=== PATIENT | female | born 1985 | race Caucasian/White ===

== ENCOUNTER → 2025-06-14 | Outpatient (CLI) | payer BC, SELFPAY ==
--- NOTE | 2025-06-14 08:12 | US_ITS ---
PROCEDURE: ELASTOGRAPHY PARENCHYMA/ORGAN 06/14/2025 REASON FOR EXAM: ELEVATED LIVER ENZYMES, FATTY LIVER TECHNIQUE: Procedure Code: USELPAROG Modality: US Procedure: ELASTOGRAPHY PARENCHYMA/ORGAN COMPARISON: Outside examination dated December 13, 2024. FINDINGS: KPA: 3.6. Velocity: 1.09. Metavir score: F 0 US/Elastography Parenchyma/Organ IMPRESSION: No evidence of hepatic fibrosis. Reading Location: [place] [id number]
--- OUTSIDE RECORDS SUMMARY | 2025-06-14 08:32 | XMS RPT_ITS | CCD ---
Author Organization [facility] Care Team Providers Care Drywall Contractor Name Role Phone SAILAJA ELECTRIC NEEDLE SPECIALIST-ARMATURE BALANCER, ABE S Primary Care Physicia n ABE MENARD Primary Care Unavailable EMILEE MCKENZIE, MENDEZ Cardona Attending Unavail able ABE MENARD Primary Care Unavailable ABE MENARD Attending Unavailable SAILAJA ELECTRIC NEEDLE SPECIALIST-ARMATURE BALANCER, ABE S Attending Unava ilable SAILAJA ELECTRIC NEEDLE SPECIALIST-ARMATURE BALANCER, ABE S Primary Care Unava ilable SAILAJA ELECTRIC NEEDLE SPECIALIST-ARMATURE BALANCER, ABE S Attending Unava ilable SAILAJA ELECTRIC NEEDLE SPECIALIST-ARMATURE BALANCER, ABE S Primary Care Unava ilable SAILAJA ELECTRIC NEEDLE SPECIALIST-ARMATURE BALANCER, ABE S Primary Care Unava ilable SAILAJA ELECTRIC NEEDLE SPECIALIST-ARMATURE BALANCER, ABE S Attending Unava ilable SAILAJA ELECTRIC NEEDLE SPECIALIST-ARMATURE BALANCER, ABE S Primary Care Unava ilable SAILAJA ELECTRIC NEEDLE SPECIALIST-ARMATURE BALANCER, ABE S Attending Unava ilable SAILAJA ELECTRIC NEEDLE SPECIALIST-ARMATURE BALANCER, ABE S Attending Unava ilable SAILAJA ELECTRIC NEEDLE SPECIALIST-ARMATURE BALANCER, ABE S Primary Care Unava ilable Riccardo Waterman Attending Unavailable Sailaja PRIMARY SCHOOL TEACHER LIBRARIAN, Abe Referring Unavailable Sailaja PRIMARY SCHOOL TEACHER LIBRARIAN, Abe Primary Care Unavailable Sailaja PRIMARY SCHOOL TEACHER LIBRARIAN-C, Abe Primary Care Provider [phone] Sailaja PRIMARY SCHOOL TEACHER LIBRARIAN-C, Abe Referring Provider Guevara MCKENZIE, Dr. Gu Attending Provider [phone] Allergies Allergy Classification Reported Allergen(s) Allergy Type Date of Onset Reaction(s) Facility (8 sources) dimethicone / Zinc Oxide; Translations: [emollients, topical] Drug Allergy [facility] Medications Current Medications Medication Drug Class(es) Dates Sig (Normalized) Sig (Original) 0.5 ML semaglutide 0.5 MG/ML Auto-Injector [Wegovy] (1 source) Start: 08-05-2022 End: 09-30-2022 inject 1 dose by subcutaneous injection every week Wegovy (0.25 mg dose) subcutaneous solution Dose : 0.25 mg =, Subcutaneous, qWeek, in the abdomen, thigh, or upper arm, X 4 week(s), # 2 mL, 1 Refill(s), 09/30/22 14:19:00 EDT, Pharmacy: [facility]/pharmacy #[id number], 170, cm, 08/05/22 13:42:00 EST, Height Start Date: 08/05/22 Stop Date: 09/30/22 Status: Ordered buprenorphine 2 mg / naloxone 0.5 mg sublingual film (1 source) Partial Opioid Agonist, Opioid Antagonist Start: 2023 buprenorphine-nalo xone 2 mg-0.5 mg sublingual film Dose = 1 film, Sublingual, TID, APPLY 1 FILM THREE TIMES A DAY Start Date: 10/12/23 Status: Ordered 24 hr buPROPion hydrochloride 300 mg extended release oral tablet (7 sources) Aminoketone Start: 12-28-2024 take 1 tablet by mouth once daily in the morning Bupropion Hcl 300 mg tablet extended release 24 hr Active 300 mg PO EVERY MORNING December 28, 2024 12:00am Start: 12-11-2024 End: 12-06-2025 take 1 tablet by mouth every hour, then take 1 tablet by mouth once daily buPROPion 300 mg/24 hours (XL) oral tablet, extended release Dose : 300 mg = 1 tab(s), Oral, qDay, # 90 tab(s), 3 Refill(s), Pharmacy: [facility]/pharmacy #[id number], 171, cm, 12/11/24 16:04:00 EDT, Height, kg, 12/11/24 16:04:00 EDT, Dosing Weight Start Date: 12/11/24 Stop Date: 12/06/25 Status: Ordered Quantity: 90.0 Unit: tab(s) Repeat number: 4 Start: 05-01-2024 End: 04-26-2025 take 1 tablet by mouth every hour, then take 1 tablet by mouth every twenty-four hours buPROPion 150 mg/24 hours (XL) oral tablet, extended release Dose : 150 mg = 1 tab(s), Oral, q24h, # 90 tab(s), 3 Refill(s), [id number], 168.7, cm, 05/01/24 16:03:00 EDT, Height, kg, 05/01/24 16:03:00 EDT, Dosing Weight Start Date: 05/01/24 Stop Date: 04/26/25 Status: Ordered Quantity: 90.0 Unit: tab(s) Repeat number: 4 Start: 2023 take 1 tablet by magdi th every hour, then take 1 tablet by mouth every twenty-four hours buPROPion 150 mg/24 hours (XL) oral tablet, extended release Dose : 150 mg = 1 tab(s), Oral, q24h, # 30 tab(s), 1 Refill(s), [id number], 169, cm, 10/12/23 16:01:00 EDT, Height, kg, 10/12/23 16:01:00 EDT, Dosing Weight Start Date: 10/12/23 Status: Ordered Suboxone 8 mg-2 mg sublingual tablet (1 source) Start: 03-27-2014 take 1 tablet under the tongue once daily Suboxone 8 mg-2 mg sublingual tablet Dose = 1 tab(s), Sublingual, Daily, # 180 tab(s), 0 Refill(s) Start Date: 03/27/14 Status: Ordered Completed/Discontinued Medications Medication Drug Class(es) Dates Sig (Normalized) Sig (Original) 0.5 ML semaglutide 2 MG/ML Auto-Injector [Wegovy] (1 source) Start: 09-20-2023 inject 0.5 mL by subcutaneous injection every week Wegovy (1 mg dose) subcutaneous solution Dose : 1 mg = 0.5 mL, Subcutaneous, qWeek, in the abdomen, thigh, or upper arm x 4 weeks, # 2 mL, 1 Refill(s), Pharmacy: [facility], 170, cm, 01/12/23 15:35:00 EDT, Height, kg, 04/16/23 18:48:00 EDT, Dosing Weight Start Date: 09/20/23 Status: Ordered Problems Problem Classification Problem Date Documented Date Episodic/Chronic Immunizations and screening for infectious disease (2 sources) Encounter for screening for infections with a predominantly sexual mode of transmission; Translations: [Encounter for screening for infections with a predominantly sexual mode of transmission] Onset: 2023 Episodic Mood disorders (6 sources) Depressive disorder 2023 Chronic Nausea and vomiting (1 source) Vomiting; Translations: [Vomiting, unspecified] Onset: 11-12-2021 Episodic Other female genital disorders (7 sources) Premenstrual tension syndrome 08-05-2022 Chronic Other liver diseases (4 sources) Elevated liver enzymes level 12-11-2024 Episodic Other nutritional; endocrine; and metabolic disorders (7 sources) Obesity 08-05-2022 Chronic Other screening for suspected conditions (not mental disorders or infectious disease) (6 sources) Viral screening status 2023 Episodic Residual codes; unclassified (5 sources) Intolerant of cold 05-01-2024 Episodic Substance-related disorders (1 source) Opioid abuse 01-26-2015 Chronic Unclassified (2 sources) Breast feeding () (observable entity) 03-30-2016 Comment on above: System added from do cumentation. Breast feeding Status documented as Yes on Admission Unclassified (7 sources) Cancer cervix screening status 08-05-2022 Unclassified (20 sources) Patient encounter status 08-05-2022 Results Test Name Value Interpretation Reference Range Facility BREAST RIGHT LIMITEDon BREAST RIGHT LIMITED ORIGINAL FROM: [place] [address] PROCEDURE FOR: [address] [address] [place] [address] Home: PID#: [id number] Exam#: [id number] : 1985 Age: 39 TO: ABE MENARD APRN [address] [address] Fax: NO FAX EXAMINATION: ULTRASOUND OF THE RIGHT BREAST 01/23/2025 2:01 pm TECHNIQUE: Color flow and alarcon scale targeted ultrasound of the right breast were performed. Permanently stored images were reviewed. COMPARISON: 01/15/2025 mammogram HISTORY: ORDERING SYSTEM PROVIDED HISTORY: Reason for Exam: abn. mammo FINDINGS: In the right breast 3 o'clock to 3 cm from the nipple there is a 4 x 3 x 2 mm hypoechoic oval mass which is felt to correspond to the mammographic abnormality, there is no vascularity. IMPRESSION: Hypoechoic mass likely related to a complicated cyst, this is felt to correspond to the mammographic abnormality. This is probably benign, follow-up right breast ultrasound and mammogram in 6 months is recommended to document stability. Karen Light risk calculations, generated with the history provided, report this patient's 10 year risk and lifetime risk for developing breast cancer at 1.5% and 11.9%, respectively. Based on this assessment tool, if the patient's calculated lifetime risk is below 20%, then the patient is considered at average risk for developing breast cancer. If the patient's calculated lifetime risk is at or above 20%, then the patient is considered high risk for developing breast cancer and may be a candidate for supplemental breast MRI screening in addition to annual mammographic screening per the [employer]. BIRADS: BI-RADS: 3: Probably Benign RECALL: 6 month follow-up RECALL TYPE: Right mammo+US LETTER SENT: Probably Benign BI-RADS 3 Interpreted by: Lm Staton MD Preliminary Report By: Lm Staton MD Electronically signed By Lm Staton MD Dictated Date: 01/23/2025 2:28:56 PM Prelim Date: 01/23/2025 2:34:18 PM Sign Date: 01/23/2025 2:34:18 PM Ordering Provider: ABE MENARD Duco Polisher: DESTINI CORRALES [facility] letter sent: Probably Benign BI-RADS 3 Ultrasound BI-RADS: 3 Probably benign Normal [facility] MAMMOGRAM SCREENING BILAT ERAL W/TOMOon 01-16-2025 [place] MAMMOGRAM SCREENING BILATERAL W/CHRISTOPH ORIGINAL FROM: [facility] [address] [place], [place] [address] PROCEDURE FOR: [address] [place] [address] Home: PID#: [id number] Exam#: [id number] : 1985 Age: 39 TO: ABE MENARD ELECTRIC NEEDLE SPECIALIST ARMATURE BALANCER [address], [place] [address] Fax: NO FAX EXAMINATION: SCREENING DIGITAL BILATERAL MAMMOGRAM WITH TOMOSYNTHESIS, 01/15/2025 3:38 pm TECHNIQUE: Screening mammography of the bilateral breasts was performed with tomosynthesis. 2D standard and 3D tomosynthesis combination imaging performed through both breasts in the MLO and CC projection. Computer aided detection was utilized in the interpretation of this exam. COMPARISON: Baseline HISTORY: Breast cancer screening. FINDINGS: BREAST DENSITY: There are scattered areas of fibroglandular density. In the right breast at 3 o'clock anterior depth, there is a 0.5 cm mass. There are no other significant masses, calcifications, or other findings. IMPRESSION: Mass in the right breast at 3 o'clock anterior depth. Right breast ultrasound is recommended. We will contact the patient to arrange for the exam. Karen Arroyozick risk calculations, generated with the history provided, report this patient's 10 year risk and lifetime risk for developing breast cancer at 1.9% and 15.1%, respectively. Based on this assessment tool, if the patient's calculated lifetime risk is below 20%, then the patient is considered at average risk for developing breast cancer. If the patient's calculated lifetime risk is at or above 20%, then the patient is considered high risk for developing breast cancer and may be a candidate for supplemental breast MRI screening in addition to annual mammographic screening per the [employer]. BIRADS: BI-RADS: 0: Incomplete: Need Additional Imaging Evaluation RECALL: immediate RECALL TYPE: Right US LETTER SENT: Abnormal-Needs additional work up BI-RADS 0 Interpreted by: Claribel Esquivel Preliminary Report By: Claribel Esquivel Electronically signed By Claribel Esquivel Dictated Date: 01/16/2025 1:57:30 PM Prelim Date: 01/16/2025 2:03:20 PM Sign Date: 01/16/2025 2:03:20 PM Ordering Provider: ABE MENARD Interpreted by: Claribel Esquivel Preliminary Report By: Claribel Esquivel Electronically signed By Claribel Esquivel Dictated Date: 01/16/2025 1:57:30 PM Prelim Date: 01/16/2025 2:03:20 PM Sign Date: 01/16/2025 2:03:20 PM Ordering Provider: ABE MENARD Duco Polisher: CAROL MARTINEZ RT (Alexys)(M) letter sent: Abnormal-Needs additional work up BI-RADS 0 Mammogram BI-RADS: 0 Indeterminate Normal [facility] US ABDOMEN LIMITEDon 12-13-2 025 US ABDOMEN LIMITED ORIGINAL EXAMINATION: RIGHT UPPER QUADRANT ULTRASOUND 12/13/2024 7:20 am COMPARISON: 12/23/2016 HISTORY: ORDERING SYSTEM PROVIDED HISTORY: Reason for Exam: elevated liver enzymes FINDINGS: LIVER: The liver demonstrates increased echogenicity and coarsened echotexture without evidence of intrahepatic biliary ductal dilatation. The liver measures 18 cm. BILIARY SYSTEM: Gallbladder is unremarkable without evidence of pericholecystic fluid, wall thickening or stones. Negative sonographic Corona's sign. Common bile duct is within normal limits measuring 4 mm. RIGHT KIDNEY: The right kidney is grossly unremarkable without evidence of hydronephrosis. The right kidney measures 11 cm PANCREAS: Pancreas not well visualized. OTHER: No evidence of right upper quadrant ascites. IMPRESSION: Hepatic steatosis and/or hepatocellular disease. Interpreted by: Christel Aguilera Preliminary Report By: Christel Aguilera Electronically signed By Christel Aguilera Dictated Date: 12/13/2024 8:53:59 AM Prelim Date: 12/13/2024 8:56:49 AM Sign Date: 12/13/2024 8:56:49 AM Ordering Provider: ABE MENARD Normal [facility] HEPACon 12-12-2024 Hep A IgM Ab Non-Reactive Normal Non-Reactive [facility] Comment on above: Performed By: #### L IPID, CBC, ADIFF, ANEU, TSH, FT4, CMP, GFR #### [place] [id number] [place], [place] [address] Hep A IgM Ab Int See Interp Normal [facility] Comment on above: Result Comment: Clinical Interpretation: No serological evidence of a current Hepatitis A infection. Performed By: #### L IPID, CBC, ADIFF, ANEU, TSH, FT4, CMP, GFR #### [place] [address] [place], [place] [address] Hep B Core IgM Ab Non-Reactive Normal Non-Reactive [facility] Comment on above: Performed By: #### L IPID, CBC, ADIFF, ANEU, TSH, FT4, CMP, GFR #### [place] [address] Hep B Core IgM Ab Int See [facility] Comment on above: Result Comment: Clinical Interpretation: Samples with a value < 0.80 Index are considered nonreactive (negative) for IgM antibodies to hepatitis B core antigen. Performed By: #### L IPID, CBC, ADIFF, ANEU, TSH, FT4, CMP, GFR #### [place] [address] Hep B Surf Ag Non-Reactive Normal Non-[facility] Comment on above: Performed By: #### L IPID, CBC, ADIFF, ANEU, TSH, FT4, CMP, GFR #### [place] [address] Hep C Ab Non-Reactive Normal Non-Reactive [facility] Comment on above: Performed By: #### L IPID, CBC, ADIFF, ANEU, TSH, FT4, CMP, GFR #### [place] [address] Hep C Ab Int See [facility] Comment on above: Result Comment: Clinical Interpretation: Nonreactive: Samples with a value < 0.80 are considered nonreactive (negative) for antibodies to HCV. A negative test result does not exclude the possibility of exposure to or infection with HCV. HCV antibodies may be undetectable in some stages of the infection and in some clinical conditions. Performed By: #### L IPID, CBC, ADIFF, ANEU, TSH, FT4, CMP, GFR #### [place] [address] LABORATORYOrdered By: Zully Green on 12-12-2024 HAV IgM IA Ql Non-Reactive (12/12/24 4:45 PM) Normal Non-Reactive AH ADM SS HAV IgM IA Ql See Inter 2 *NA* (12/12/24 4:45 PM) Invalid Interpretation Code Chemistry S Comment on above: Result Comment: Clinical Interpretation: No serological evidence of a current Hepatitis A infection. HBV core IgM IA Ql Non-Reactive (12/12/24 4:45 PM) Normal Non-Reactive AH ADM SS HBV core IgM IA Ql See Interp 1 *NA* (12/12/24 4:45 PM) Invalid Interpretation Code Chemistry S Comment on above: Result Comment: Clinical Interpretation: Samples with a value < 0.80 Index are considered nonreactive (negative) for IgM antibodies to hepatitis B core antigen. HBV surface Ag IA Ql Non-Reactive (12/12/24 4:45 PM) Normal Non-Reactive AH ADM SS HCV Ab IA Ql Non-Reactive (12/12/24 4:45 PM) Normal Non-Reactive AH ADM SS HCV Ab IA Ql See Interp 3 *NA* (12/12/24 4:45 PM) Invalid Interpretation Code Chemistry S Comment on above: Result Comment: Clinical Interpretation: Nonreactive: Samples with a value < 0.80 are considered nonreactive (negative) for antibodies to HCV. A negative test result does not exclude the possibility of exposure to or infection with HCV. HCV antibodies may be undetectable in some stages of the infection and in some clinical conditions. .Auto Diffon 12-10-2024 Basophil, Absolute 0.1 10 3/mcL Normal 0.0-0.3 [facility] Comment on above: Performed By: #### L IPID, CBC, ADIFF, ANEU, TSH, FT4, CMP, GFR #### [address] [address] Basophils/100 WBC (Bld) 0.7 % Normal 0.0-2.5 [facility] Comment on above: Performed By: #### L IPID, CBC, ADIFF, ANEU, TSH, FT4, CMP, GFR #### [place] [address] [place], [place] [address] Eosinophil, Absolute 0.2 10 3/mcL Normal 0.0-0.7 [facility] Comment on above: Performed By: #### L IPID, CBC, ADIFF, ANEU, TSH, FT4, CMP, GFR #### [address] [address] Eosinophils/100 WBC (Bld) 2.2 % Normal 0.0-6.0 [facility] Comment on above: Performed By: #### L IPID, CBC, ADIFF, ANEU, TSH, FT4, CMP, GFR #### [address] [address] Lymphocyte, Absolute 1.9 10 3/mcL Normal 0.9-4.3 [facility] Comment on above: Performed By: #### L IPID, CBC, ADIFF, ANEU, TSH, FT4, CMP, GFR #### [address] [address] Lymphocytes/100 WBC (Bld) 24.1 % Normal 20.0-40.0 [facility] Comment on above: Performed By: #### L IPID, CBC, ADIFF, ANEU, TSH, FT4, CMP, GFR #### [address] [address] Monocyte, Absolute 0.4 10 3/mcL Normal 0.1-1.4 [facility] Comment on above: Performed By: #### L IPID, CBC, ADIFF, ANEU, TSH, FT4, CMP, GFR #### [address] [address] Monocytes/100 WBC (Bld) 5.2 % Normal 2.0-13.0 [facility] Comment on above: Performed By: #### L IPID, CBC, ADIFF, ANEU, TSH, FT4, CMP, GFR #### [address] [address] Neutrophils/100 WBC (Bld) 67.8 % Normal 50.0-75.0 [facility] Comment on above: Performed By: #### L IPID, CBC, ADIFF, ANEU, TSH, FT4, CMP, GFR #### [address] [address] .GFRon 12-10-2024 Estimated Glomerular Filtration Rate 95 ml/min/1.73sqm Normal [facility] Comment on above: Result Comment: Stages of Chronic Kidney Disease (CKD) Stage Description eGFR(ml/min/1.73 sq.m.) CKD 1 Normal kidney function or >=90 normal kindney function with possible kidney damage (ex. Proteinuria) CKD 2 Kidney damage with mild loss 60-89 of kidney function CKD 3a Mild to moderate loss of kidney 45-59 function CKD 3b Moderate to severe loss of 30-44 of kindey function CKD 4 Severe loss of kidney function 15-29 CKD 5 Kidney failure <15 Note: (go live 2024) the eGFR calculation was updated to the 2020 CKD-EPI creatinine equation without a race factor to calculate the eGFR results. Performed By: #### L IPID, CBC, ADIFF, ANEU, TSH, FT4, CMP, GFR #### [place] [id number] .NEUABSon 12-10-2024 Neutrophil, Absolute 5.3 10 3/mcL Normal 2.3-8.1 [facility] Comment on above: Performed By: #### L IPID, CBC, ADIFF, ANEU, TSH, FT4, CMP, GFR #### [place] [address] CBCon 12-10-2024 Erythrocyte distribution width (RBC) [Ratio] 13.5 % Normal 11.5-15.5 [facility] Comment on above: Performed By: #### L IPID, CBC, ADIFF, ANEU, TSH, FT4, CMP, GFR #### [place] [address] Hematocrit (Bld) [Volume fraction] 39.3 % Normal 34.0-46.0 [facility] Comment on above: Performed By: #### L IPID, CBC, ADIFF, ANEU, TSH, FT4, CMP, GFR #### [place] [address] Hgb 13.3 G/dL Normal 12.0-16.0 [facility] Comment on above: Performed By: #### L IPID, CBC, ADIFF, ANEU, TSH, FT4, CMP, GFR #### [place] [address] MCH (RBC) [Entitic mass] 31.1 pg Normal 27.0-33.0 [facility] Comment on above: Performed By: #### L IPID, CBC, ADIFF, ANEU, TSH, FT4, CMP, GFR #### [address] [address] MCHC 33.7 G/dL Normal 32.0-36.0 [facility] Comment on above: Performed By: #### L IPID, CBC, ADIFF, ANEU, TSH, FT4, CMP, GFR #### [place] [id number] MCV (RBC) [Entitic vol] 92.2 fL Normal 80.0-99.0 [facility] Comment on above: Performed By: #### L IPID, CBC, ADIFF, ANEU, TSH, FT4, CMP, GFR #### [address] [address] Platelet 248 10 3/mcL Normal 150-450 [facility] Comment on above: Performed By: #### L IPID, CBC, ADIFF, ANEU, TSH, FT4, CMP, GFR #### [place] [address] Platelet mean volume (Bld) [Entitic vol] 8.4 fL Normal 6.6-10.5 [facility] Comment on above: Performed By: #### L IPID, CBC, ADIFF, ANEU, TSH, FT4, CMP, GFR #### [place] [id number] RBC 4.26 10 6/mcL Normal 4.10-5.30 [facility] Comment on above: Performed By: #### L IPID, CBC, ADIFF, ANEU, TSH, FT4, CMP, GFR #### [place] [address] WBC 7.9 10 3/mcL Normal 4.5-10.8 [facility] Comment on above: Performed By: #### L IPID, CBC, ADIFF, ANEU, TSH, FT4, CMP, GFR #### [place] [address] CMPon 12-10-2024 Albumin Level 3.9 G/dL Normal 3.5-5.0 [facility] Comment on above: Performed By: #### L IPID, CBC, ADIFF, ANEU, TSH, FT4, CMP, GFR #### [address] [address] Albumin/Globulin [Mass ratio] 1.0 {ratio} Low 1.1-2.5 [facility] Comment on above: Performed By: #### L IPID, CBC, ADIFF, ANEU, TSH, FT4, CMP, GFR #### [place] [id number] ALP [Catalytic activity/Vol] 64 U/L Normal 40-135 [facility] Comment on above: Performed By: #### L IPID, CBC, ADIFF, ANEU, TSH, FT4, CMP, GFR #### [place] [id number] ALT [Catalytic activity/Vol] 132 U/L High 14-59 [facility] Comment on above: Performed By: #### L IPID, CBC, ADIFF, ANEU, TSH, FT4, CMP, GFR #### [place] [id number] AST [Catalytic activity/Vol] 59 U/L High 10-40 [facility] Comment on above: Performed By: #### L IPID, CBC, ADIFF, ANEU, TSH, FT4, CMP, GFR #### [address] [address] Bili Total 0.4 mg/dL Normal 0.2-1.0 [facility] Comment on above: Result Comment: Use of this assay is not recommended for patients undergoing treatment with eltrombopag due to the potential for falsely elevated results. Performed By: #### L IPID, CBC, ADIFF, ANEU, TSH, FT4, CMP, GFR #### [place] [id number] BUN/Creatinine Ratio 15 ratio Normal 7-27 [facility] Comment on above: Performed By: #### L IPID, CBC, ADIFF, ANEU, TSH, FT4, CMP, GFR #### [place] [address] Calcium [Mass/Vol] 9.2 mg/dL Normal 8.4-10.2 [facility] Comment on above: Performed By: #### L IPID, CBC, ADIFF, ANEU, TSH, FT4, CMP, GFR #### [place] [address] Chloride [Moles/Vol] 101 mmol/L Normal 98-107 [facility] Comment on above: Performed By: #### L IPID, CBC, ADIFF, ANEU, TSH, FT4, CMP, GFR #### [place] [address] CO2 [Moles/Vol] 28 mmol/L Normal 22-29 [facility] Comment on above: Performed By: #### L IPID, CBC, ADIFF, ANEU, TSH, FT4, CMP, GFR #### [place] [address] Creatinine [Mass/Vol] 0.80 mg/dL Normal 0.51-0.95 [facility] Comment on above: Performed By: #### L IPID, CBC, ADIFF, ANEU, TSH, FT4, CMP, GFR #### [place] [address] Electrolyte Balance 9.0 mEq/L Normal 4.0-15.[address] [facility] Comment on above: Performed By: #### L IPID, CBC, ADIFF, ANEU, TSH, FT4, CMP, GFR #### [place] [address] Globulin 4.1 G/dL Normal 2.7-4.4 [facility] Comment on above: Performed By: #### L IPID, CBC, ADIFF, ANEU, TSH, FT4, CMP, GFR #### [place] [address] Glucose [Mass/Vol] 101 mg/dL Normal 70-105 [facility] Comment on above: Performed By: #### L IPID, CBC, ADIFF, ANEU, TSH, FT4, CMP, GFR #### [address] [address] Potassium [Moles/Vol] 3.9 mmol/L Normal 3.5-5.1 [facility] Comment on above: Performed By: #### L IPID, CBC, ADIFF, ANEU, TSH, FT4, CMP, GFR #### [address] [address] Sodium [Moles/Vol] 138 mmol/L Normal 136-145 [facility] Comment on above: Performed By: #### L IPID, CBC, ADIFF, ANEU, TSH, FT4, CMP, GFR #### [address] [address] Total Protein 8.0 G/dL Normal 6.4-8.2 [facility] Comment on above: Performed By: #### L IPID, CBC, ADIFF, ANEU, TSH, FT4, CMP, GFR #### [address] [address] Urea nitrogen [Mass/Vol] 12 mg/dL Normal 7-18 [facility] Comment on above: Performed By: #### L IPID, CBC, ADIFF, ANEU, TSH, FT4, CMP, GFR #### [address] [address] FT4on 12-10-2024 Free T4 [Mass/Vol] 0.82 ng/dL Normal 0.76-1.46 [facility] Comment on above: Performed By: #### L IPID, CBC, ADIFF, ANEU, TSH, FT4, CMP, GFR #### [address] [address] LABORATORYOrdered By: SYSTEM SYSTEM on 12-10-2024 Albumin BCP dye [Mass/Vol] 3.9 G/dL Normal 3.5 - 5.0 G/dL AO ADM SS Albumin/Globulin [Mass ratio] 1.0 {ratio} Low 1.1 - 2.5 ratio AO ADM SS ALP [Catalytic activity/Vol] 64 U/L Normal 40 - 135 U/L AO ADM SS ALT With P-5'-P [Catalytic activity/Vol] 132 U/L High 14 - 59 U/L AO ADM SS AST With P-5'-P [Catalytic activity/Vol] 59 U/L High 10 - 40 U/L AO ADM SS Basophils (Bld) [#/Vol] 0.1 103/mcL Normal 0.0 - 0.3 10^3/mcL AO Workflow SS Basophils/100 WBC (Bld) 0.7 % Normal 0.0 - 2.5 % AO Workflow SS Bilirubin [Mass/Vol] 0.4 mg/dL Normal 0.2 - 1 .0 mg/dL AO ADM SS Comment on above: Interpretive Data: U se of this assay is not recommended for patients undergoing treatment with eltrombopag due to the potential for falsely elevated results. Calcium [Mass/Vol] 9.2 mg/dL Normal 8.4 - 10. 2 mg/dL AO ADM SS Chloride [Moles/Vol] 101 mmol/L Normal 98 - 10 7 mmol/L AO ADM SS CO2 [Moles/Vol] 28 mmol/L Normal 22 - 29 mmol/L AO ADM SS Creatinine [Mass/Vol] 0.80 mg/dL Normal 0.51 - 0.95 mg/dL AO ADM SS Electrolyte Balance 9.0 mEq/L Normal 4.0 - 15 .0 mEq/L AO ADM SS Eosinophil, Absolute 0.2 103/mcL Normal 0.0 - 0 .7 10^3/mcL AO Workflow SS Eosinophils/100 WBC (Bld) 2.2 % Normal 0.0 - 6.0 % AO Workflow SS Erythrocyte distribution width (RBC) [Ratio] 13.5 % Normal 11.5 - 15.5 % AO Workflow SS Estimated Glomerular Filtration Rate 95 ml/min/1.73sqm Invalid Interpretation Code AO Chemistry S Comment on above: Interpretive Data: Stages of Chronic Kidney Disease (CKD) Stage Description eGFR(ml/min/1.73 sq.m.) CKD 1 Normal kidney function or >=90 normal kindney function with possible kidney damage (ex. Proteinuria) CKD 2 Kidney damage with mild loss 60-89 of kidney function CKD 3a Mild to moderate loss of kidney 45-59 function CKD 3b Moderate to severe loss of 30-44 of kindey function CKD 4 Severe loss of kidney function 15-29 CKD 5 Kidney failure <15 Note: (go live 2024) the eGFR calculation was updated to the 2020 CKD-EPI creatinine equation without a race factor to calculate the eGFR results. Free T4 [Mass/Vol] 0.82 ng/dL Normal 0.76 - 1. 46 ng/dL AO ADM SS Globulin 4.1 G/dL Normal 2.7 - 4.4 G/dL AO ADM SS Glucose [Mass/Vol] 101 mg/dL Normal 70 - 105 mg/dL AO ADM SS Hematocrit (Bld) [Volume fraction] 39.3 % Normal 34.0 - 46.0 % AO Workflow SS Hemoglobin (Bld) [Mass/Vol] 13.3 G/dL Normal 12.0 - 16.0 G/dL AO Workflow SS Lymphocytes (Bld) [#/Vol] 1.9 103/mcL Normal 0.9 - 4.3 10^3/mcL AO Workflow SS Lymphocytes/100 WBC (Bld) 24.1 % Normal 20.0 - 40.0 % AO Workflow SS MCH (RBC) [Entitic mass] 31.1 pg Normal 27.0 - 33.0 pg AO Workflow SS MCHC 33.7 G/dL Normal 32.0 - 36.0 G/dL AO Workflow SS MCV (RBC) [Entitic vol] 92.2 fL Normal 80.0 - 99.0 fL AO Workflow SS Monocytes (Bld) [#/Vol] 0.4 103/mcL Normal 0.1 - 1.4 10^3/mcL AO Workflow SS Monocytes/100 WBC (Bld) 5.2 % Normal 2.0 - 13.0 % AO Workflow SS Neutrophils (Bld) [#/Vol] 5.3 103/mcL Normal 2.3 - 8.1 10^3/mcL AO Workflow SS Neutrophils/100 WBC (Bld) 67.8 % Normal 50.0 - 75.0 % AO Workflow SS Platelet mean volume (Bld) [Entitic vol] 8.4 fL Normal 6.6 - 10.5 fL AO Workflow SS Platelets (Bld) [#/Vol] 248 103/mcL Normal 150 - 450 10^3/mcL AO Workflow SS Potassium [Moles/Vol] 3.9 mmol/L Normal 3.5 - 5.1 mmol/L AO ADM SS Protein [Mass/Vol] 8.0 G/dL Normal 6.4 - 8.2 G/dL AO ADM SS RBC (Bld) [#/Vol] 4.26 106/mcL Normal 4.10 - 5.3 0 10^6/mcL AO Workflow SS Sodium [Moles/Vol] 138 mmol/L Normal 136 - 145 mmol/L AO ADM SS TSH Qn 1.82 m[IU]/L Normal 0.36 - 3.74 mcIU/mL AO ADM SS Urea nitrogen [Mass/Vol] 12 mg/dL Normal 7 - 18 mg/dL AO ADM SS Urea nitrogen/Creatinine [Mass ratio] 15 ratio Normal 7 - 27 ratio AO ADM SS WBC (Bld) [#/Vol] 7.9 103/mcL Normal 4.5 - 10.8 10^3/mcL AO Workflow SS LABORATORYOrdered By: Sylvie Bowman on 12-10-2024 Cholesterol [Mass/Vol] 240 mg/dL High 0 - 200 mg/dL AO ADM SS Comment on above: Interpretive Data: C holesterol Reference Interval: Less than 200 Desirable 200-239 Borderline high risk 240 and above High risk Cholesterol in HDL [Mass/Vol] 69 mg/dL High 40 - 60 mg/dL AO ADM SS Cholesterol in LDL [Mass/Vol] 145 mg/dL High 0 - 130 mg/dL AO ADM SS Triglyceride [Mass/Vol] 128 mg/dL Normal 0 - 150 mg/dL AO ADM SS Comment on above: Interpretive Data: T riglyceride Reference Interval: Less than 150 Normal 150-199 Borderline high risk 200-499 High risk 500 or higher Very high risk LIPIDon 12-10-2024 Cholesterol [Mass/Vol] 240 mg/dL High 0-200 [facility] Comment on above: Result Comment: Chol esterol Reference Interval: Less than 200 Desirable 200-239 Borderline high risk 240 and above High risk Performed By: #### L IPID, CBC, ADIFF, ANEU, TSH, FT4, CMP, GFR #### [facility] [address] [place], [place] [address] Cholesterol in HDL [Mass/Vol] 69 mg/dL High 40-60 [facility] Comment on above: Performed By: #### L IPID, CBC, ADIFF, ANEU, TSH, FT4, CMP, GFR #### [address] [address] Cholesterol in LDL [Mass/Vol] 145 mg/dL High 0-130 [facility] Comment on above: Performed By: #### L IPID, CBC, ADIFF, ANEU, TSH, FT4, CMP, GFR #### [place] [address] [place], [place] [address] Triglyceride [Mass/Vol] 128 mg/dL Normal 0-150 [facility] Comment on above: Result Comment: Trig lyceride Reference Interval: Less than 150 Normal 150-199 Borderline high risk 200-499 High risk 500 or higher Very high risk Performed By: #### L IPID, CBC, ADIFF, ANEU, TSH, FT4, CMP, GFR #### [address] [address] TSHon 12-10-2024 TSH Qn 1.82 m[IU]/L Normal 0.36-3.74 [facility] Comment on above: Performed By: #### L IPID, CBC, ADIFF, ANEU, TSH, FT4, CMP, GFR #### [address] [address] CTPCRon 10-16-2023 C. trachomatis Interp Normal [facility] ([place]) Comment on above: Result Comment: CTPC R assay was repeated on specimen. Unable to obtain a valid test result. This may be due to specimen integrity, improper collection technique or other unknown cause. Recommend repeat testing. See CT Interp I Performed By: #### C TPCR, [email or web address] ####[place] [address] C.trachomatis PCR Failed Normal Negative [facility] ([place]) Comment on above: Result Comment: Mole cular (PCR) assay performed on the [employer] 4800 system. Performed By: #### C TPCR, [email or web address] ####[address] [address] Chlam Source Cervix Normal [facility] ([place]) Comment on above: Performed By: #### C TPCR, [email or web address] ####[address] [address] [id number] 10-16-2023 GC PCR Source Cervix Normal [facility] ([place]) Comment on above: Performed By: #### C TPCR, [email or web address] ####[address] [address] N. gonorrhoeae (PCR) Failed Normal Negative [facility] ([place]) Comment on above: Result Comment: Mole cular (PCR) assay performed on the [employer] 4800 System. Performed By: #### C TPCR, [email or web address] ####[address] [address] N. gonorrhoeae Interp Normal [facility] ([place]) Comment on above: Result Comment: NGPC R assay was repeated on specimen. Unable to obtain a valid test result. This may be due to specimen integrity, improper collection technique or other unknown cause. Recommend repeat testing. See NG Interp I Performed By: #### C TPCR, [email or web address] ####[place] [address] LABORATORYOrdered By: Mckay Maxwell on 2023 C. trachomatis DNA LELAND+probe Ql (Unsp spec) Failed 2 (10/12/23 10:53 AM) Normal Negative Auto Viro/Sero SS Comment on above: Interpretive Data: M olecular (PCR) assay performed on the [employer] 4800 system. C. trachomatis DNA LELAND+probe Ql (Unsp spec) CTPCR assay was repeated on specimen. Unable to obtain a valid testresult. This may be due to specimen integrity, improper collectiontechnique or other unknown cause. Recommend repeat testing. Normal AH Auto Viro/Sero SS N. gonorrhoeae DNA LELAND+probe Ql (Unsp spec) Failed 1 (10/12/23 10:53 AM) Normal Negative AH Auto Viro/Sero SS Comment on above: Interpretive Data: M olecular (PCR) assay performed on the [employer] 4800 System. N. gonorrhoeae DNA LELAND+probe Ql (Unsp spec) NGPCR assay was repeated on specimen. Unable to obtain a valid testresult. This may be due to specimen integrity, improper collectiontechnique or other unknown cause. Recommend repeat testing. Normal Auto Viro/Sero SS Laboratory - Specimen inform ationOrdered By: Mckay Maxwell on 2023 Specimen source Nom (Unsp spec) Cervix (10/12/23 10:53 AM) Normal Auto Viro/Sero SS No Panel InformationOrdered By: Alexis Cloud on 2023 Affirm Pathogens DNA Direct Probe Gardnerella vaginalis DNA Probe Negative Marley species DNA Probe Negative Trichomonas vaginalis DNA Probe Negative [facility] .Auto Diffon 04-16-2023 Basophil, Absolute 0.0 10 3/mcL Normal 0.0-0.2 [facility] ([place]) Comment on above: Performed By: #### T NATALIE CAMACHO ANEU, MDW, CBC, DIMER, BMP, GFR #### [address] [address] Basophils/100 WBC (Bld) 0.4 % Normal 0.0-2.5 [facility] ([place]) Comment on above: Performed By: #### T NATALIE CAMACHO, JULIANNA, MDW, CBC, DIMER, BMP, GFR #### [address] [address] Eosinophil, Absolute 0.1 10 3/mcL Normal 0.0-0.4 [facility] ([place]) Comment on above: Performed By: #### T NATALIE CAMACHO, JULIANNA, MDW, CBC, DIMER, BMP, GFR #### [address] [address] Eosinophils/100 WBC (Bld) 0.6 % Normal 0.0-7.0 [facility] ([place]) Comment on above: Performed By: #### T NATALIE CAMACHO, JULIANNA, MDW, CBC, DIMER, BMP, GFR #### [address] [address] Lymphocyte, Absolute 2.7 10 3/mcL Normal 0.8-3.9 [facility] ([place]) Comment on above: Performed By: #### T NATALIE CAMACHO, JULIANNA, MDW, CBC, DIMER, BMP, GFR #### [address] [address] Lymphocytes/100 WBC (Bld) 26.9 % Normal 10.0-50.0 [facility] ([place]) Comment on above: Performed By: #### T NATALIE CAMACHO ANEU, MDW, CBC, DIMER, BMP, GFR #### [address] [address] Monocyte, Absolute 0.4 10 3/mcL Normal 0.2-1.0 [facility] ([place]) Comment on above: Performed By: #### T NATALIE CAMACHO, JULIANNA, MDW, CBC, DIMER, BMP, GFR #### [address] [address] Monocytes/100 WBC (Bld) 3.8 % Normal 1.7-13.0 [facility] ([place]) Comment on above: Performed By: #### T NATALIE CAMACHO ANEU, MDW, CBC, DIMER, BMP, GFR #### [address] [address] Neutrophils/100 WBC (Bld) 68.3 % Normal 37.0-80.0 [facility] ([place]) Comment on above: Performed By: #### T NATALIE CAMACHO ANEU, MDW, CBC, DIMER, BMP, GFR #### [address] [address] .GFRon 04-16-2023 GFR Non- 57 ml/min/1.73sqm Normal [facility] ([place]) Comment on above: Result Comment: GFR Population mean for , Non- Americans Ages 20-29 = 116 mL/min/1.73 sq.m. Ages 30-39 = 107 mL/min/1.73 sq.m. Ages 40-49 = 99 mL/min/1.73 sq.m. Ages 50-59 = 93 mL/min/1.73 sq.m. Ages 60-69 = 85 mL/min/1.73 sq.m. Ages 70+ = 75 mL/min/1.73 sq.m. Chronic Kidney Disease: Less than 60 mL/min/1.73 square meters End Stage Renal Disease: Less than 15 mL/min/1.73 square meters Performed By: #### T NATALIE CAMACHO ANEU, MDW, CBC, DIMER, BMP, GFR #### [address] [address] GFR 70 ml/min/1.73sqm Normal [facility] ([place]) Comment on above: Result Comment: GFR Population mean for , Non- Americans Ages 20-29 = 116 mL/min/1.73 sq.m. Ages 30-39 = 107 mL/min/1.73 sq.m. Ages 40-49 = 99 mL/min/1.73 sq.m. Ages 50-59 = 93 mL/min/1.73 sq.m. Ages 60-69 = 85 mL/min/1.73 sq.m. Ages 70+ = 75 mL/min/1.73 sq.m. Chronic Kidney Disease: Less than 60 mL/min/1.73 square meters End Stage Renal Disease: Less than 15 mL/min/1.73 square meters Performed By: #### T NATALIE CAMACHO ANEU, MDW, CBC, DIMER, BMP, GFR #### [address] [address] .MDWon 04-16-2023 Monocyte Distribution Width 16.16 Normal 0.00-20.00 [facility] ([place]) Comment on above: Result Comment: For ED adult patients suspected of sepsis, MDW<=20.0 does not rule out sepsis or risk of sepsis Performed By: #### T NATALIE CAMACHO ANEU, MDW, CBC, DIMER, BMP, GFR #### [address] [address] .NEUABSon 04-16-2023 Neutrophil, Absolute 6.7 10 3/mcL High 2.9-6.2 [facility] ([place]) Comment on above: Performed By: #### T NATALIE CAMACHO, JULIANNA, MDW, CBC, DIMER, BMP, GFR #### [address] [address] BMPon 04-16-2023 BUN/Creatinine Ratio 8 ratio Normal 7-27 [facility] ([place]) Comment on above: Performed By: #### T NATALIE CAMACHO ANEU, MDW, CBC, DIMER, BMP, GFR #### [address] [address] Calcium [Mass/Vol] 8.7 mg/dL Normal 8.4-10.2 [facility] ([place]) Comment on above: Performed By: #### T NATALIE CAMACHO ANEU, MDW, CBC, DIMER, BMP, GFR #### [address] [address] Chloride [Moles/Vol] 102 mmol/L Normal 98-107 [facility] ([place]) Comment on above: Performed By: #### T NATALEI CAMACHO ANEU, MDW, CBC, DIMER, BMP, GFR #### [address] [address] CO2 [Moles/Vol] 27 mmol/L Normal 22-29 [facility] ([place]) Comment on above: Performed By: #### T NATALIE CAMACHO ANEU, MDW, CBC, DIMER, BMP, GFR #### [address] [address] Creatinine [Mass/Vol] 1.07 mg/dL High 0.55-1.02 [facility] ([place]) Comment on above: Performed By: #### T NATALIE CAMACHO ANEU, MDW, CBC, DIMER, BMP, GFR #### [address] [address] Electrolyte Balance 9.0 mEq/L Normal 4.0-15.0 [facility] ([place]) Comment on above: Performed By: #### T NATALIE CAMACHO ANEU, MDW, CBC, DIMER, BMP, GFR #### [address] [address] Glucose [Mass/Vol] 81 mg/dL Normal 70-105 [facility] ([place]) Comment on above: Performed By: #### T NATALIE CAMACHO ANEU, MDW, CBC, DIMER, BMP, GFR #### [address] [address] Potassium [Moles/Vol] 3.7 mmol/L Normal 3.5-5.1 [facility] ([place]) Comment on above: Performed By: #### T NATALIE CAMACHO ANEU, MDW, CBC, DIMER, BMP, GFR #### [place] [id number] Sodium [Moles/Vol] 138 mmol/L Normal 136-145 [facility] ([place]) Comment on above: Performed By: #### T NATALIE CAMACHO ANEU, MDW, CBC, DIMER, BMP, GFR #### [place] [address] Urea nitrogen [Mass/Vol] 9 mg/dL Normal 7-18 [facility] ([place]) Comment on above: Performed By: #### T NATALIE CAMACHO ANEU, MDW, CBC, DIMER, BMP, GFR #### [place] [id number] CBCon 04-16-2023 Erythrocyte distribution width (RBC) [Ratio] 13.7 % Normal 11.5-14.5 [facility] ([place]) Comment on above: Performed By: #### T NATALIE CAMACHO ANEU, MDW, CBC, DIMER, BMP, GFR #### [place] [id number] Hematocrit (Bld) [Volume fraction] 38.2 % Normal 37.0-47.0 [facility] ([place]) Comment on above: Performed By: #### T NATALIE CAMACHO ANEU, MDW, CBC, DIMER, BMP, GFR #### [place] [address] Hgb 13.0 G/dL Normal 12.0-16.0 [facility] ([place]) Comment on above: Performed By: #### T NATALIE CAMACHO ANEU MDW, CBC, DIMER, BMP, GFR #### [place] [address] MCH (RBC) [Entitic mass] 30.6 pg Normal 27.0-31.2 [facility] ([place]) Comment on above: Performed By: #### T NATALIE CAMACHO ANEU, MDW, CBC, DIMER, BMP, GFR #### [address] [address] MCHC 34.0 G/dL Normal 33.0-37.0 [facility] ([place]) Comment on above: Performed By: #### T NATALIE CAMACHO ANEU, MDW, CBC, DIMER, BMP, GFR #### [address] [address] MCV (RBC) [Entitic vol] 90.0 fL Normal 80.0-94.0 [facility] ([place]) Comment on above: Performed By: #### NATALIE ANDERS ANEU, MDW, CBC, DIMER, BMP, GFR #### [address] [address] Platelet 261 10 3/mcL Normal 130-400 [facility] ([place]) Comment on above: Performed By: #### T NATALIE CAMACHO ANEU, MDW, CBC, DIMER, BMP, GFR #### [address] [address] Platelet mean volume (Bld) [Entitic vol] 8.7 fL Normal 7.4-10.4 [facility] ([place]) Comment on above: Performed By: #### T NATALIE CAMACHO ANEU, MDW, CBC, DIMER, BMP, GFR #### [address] [address] RBC 4.24 10 6/mcL Normal 4.20-5.40 [facility] ([place]) Comment on above: Performed By: #### NATALIE ANDERS ANEU, MDW, CBC, DIMER, BMP, GFR #### [address] [address] WBC 9.9 10 3/mcL Normal 4.6-10.8 [facility] ([place]) Comment on above: Performed By: #### T NATALIE CAMACHO ANEU, MDW, CBC, DIMER, BMP, GFR #### [address] [address] DIMERon 04-16-2023 D-Dimer <200 Normal 0-230 [facility] ([place]) Comment on above: Result Comment: DDN: Results reported in D-DU ng/mL. Negative for D-dimer. DVT/PE is highly unlikely. Note: False negative results may be seen in patients on anticoagulant therapy. The result of the D-Dimer test should be evaluated in the context of all the clinical and laboratory data available. In those instances where the laboratory result does not agree with the clinical evaluation, additional tests should be performed accordingly. If the D-Dimer result is used to exclude DVT or PE, the recommended cutoff value is less than 230 ng/mL. The D-Dimer result should not be used alone to rule in DVT/PE, but should be used in conjunction with a clinical pretest probability (PTP)assessment model to exclude venous thromboembolism (VTE) in outpatients suspected of deep venous thrombosis (DVT) and pulmonary embolism (PE). Performed By: #### T NATALIE CAMACHO ANEU, MDW, CBC, DIMER, BMP, GFR #### [address] [address] TROPHSon 04-16-2023 Troponin I High Sensitivity <4.0 Normal 0.0-51.4 [facility] ([place]) Comment on above: Performed By: #### T NATALIE CAMACHO ANEU, MDW, CBC, DIMER, BMP, GFR #### [address] [address] XR CHEST 2 VIEWSon 3 XR CHEST 2 VIEWS ORIGINAL EXAMINATION: TWO XRAY VIEWS OF THE CHEST 04/16/2023 8:15 pm COMPARISON: None. HISTORY: ORDERING SYSTEM PROVIDED HISTORY: Reason for Exam: SOB/Cough/Fever FINDINGS: The cardiomediastinal silhouette appears normal. There is no focal consolidation. There is no pulmonary edema. There is no evidence of pleural effusion. There is no evidence of pneumothorax. No acute fracture is identified. IMPRESSION: No acute abnormality is identified. Interpreted by: Yuriy Rodríguez Preliminary Report By: Yuriy Rodríguez Electronically signed By Yuriy Rodríguez Dictated Date: 04/16/2023 8:19:32 PM Prelim Date: 04/16/2023 8:20:48 PM Sign Date: 04/16/2023 8:20:48 PM Ordering Provider: MENDEZ HEBERT [facility] ([place]) LABORATORYOrdered By: Colleen Knowels on 11-12-2021 Appearance (U) Slightly Cloudy *ABN* (11/12/21 1:14 AM) Invalid Interpretation Code Clear AO Auto Urine SS Bacteria LM.HPF (Urine sed) [#/Area] Trace /HPF Invalid Interpretation Code AO Auto Urine SS Bilirubin Ql (U) Negative (11/12/21 1:14 AM) Invalid Interpretation Code Negative AO Auto Urine SS Color (U) Yellow (11/12/21 1:14 AM) Invalid Interpretation Code AO Auto Urine SS Crystals.amorphous LM.HPF (Urine sed) [#/Area] 4 /[HPF] Invalid Interpretation Code AO Auto Urine SS Glucose Test strip (U) [Mass/Vol] Negative Invalid Interpretation Code Negativemg/d L AO Auto Urine SS HCG ( test) Ql Negative (11/12/21 1:14 AM) Invalid Interpretation Code AO Manual Urine SS Hemoglobin Auto test strip (U) [Mass/Vol] Negative (11/12/21 1:14 AM) Invalid Interpretation Code Negative AO Auto Urine SS Ketones Ql (U) Negative Invalid Interpretation Code Negativemg/d L AO Auto Urine SS test (u) int Not detected Invalid Interpretation Code AO Manual Urine SS UA Leuk Est Negative (11/12/21 1:14 AM) Invalid Interpretation Code Negative AO Auto Urine SS UA Nitrite Negative (11/12/21 1:14 AM) Invalid Interpretation Code Negative AO Auto Urine SS UA pH 7.0 (11/12/21 1:14 AM) Invalid Interpretation Code 5.0 - 8.0 AO Auto Urine SS UA Protein Negative Invalid Interpretation Code Negativemg/d L AO Auto Urine SS UA RBC 0-5 /HPF Invalid Interpretation Code None Seen/HPF AO Auto Urine SS UA Spec Grav 1.020 (11/12/21 1:14 AM) Invalid Interpretation Code 1.015-1.025 AO Auto Urine SS UA Specimen Type Clean Catch (11/12/21 1:14 AM) Invalid Interpretation Code AO Auto Urine SS UA Squam Epithelial 0-5 /HPF Invalid Interpretation Code None Seen/HPF AO Auto Urine SS UA Urobilinogen 0.2 E.U./dL Invalid Interpretation Code 0.2-1.0E.U./ dL AO Auto Urine SS WBC LM.HPF (Urine sed) [#/Area] 0-5 /HPF Invalid Interpretation Code None Seen/HPF AO Auto Urine SS Vital Signs Date Time Vital Sign Value Performing Clinician Facility 02-12-2025 14:44-0400 Body height 167.64 cm Abe Menard [employer] Work Phone: [facility] 02-12-2025 14:44-0400 Body mass index (BMI) [Ratio] 38.7 kg/m2 Abe Menard [employer] Work Phone: [facility] 02-12-2025 14:44-0400 Body weight 108.86 kg Abe Menard [employer] Work Phone: [facility] 02-12-2025 14:44-0400 Diastolic blood pressure 66 mm[Hg] Abe Menard [employer] Work Phone: [facility] 02-12-2025 14:44-0400 Heart rate 83 /min Abe Menard [employer] Work Phone: [facility] 02-12-2025 14:44-0400 SaO2% (BldA) [Mass fraction] 94 % Abeapril Menard [employer] Work Phone: [facility] 02-12-2025 14:44-0400 Systolic blood pressure 107 mm[Hg] Abe Menard [employer] Work Phone: [facility] 11-12-2021 01:05-0400 Body height 172.7 cm MENDEZ HEBERT MD [facility] 11-12-2021 01:05-0400 Body temperature 98.06 [degF] MENDEZ HEBERT MD [facility] 11-12-2021 01:05-0400 Body weight 104.5 kg MENDEZ HEBERT MD [facility] 11-12-2021 01:05-0400 Diastolic blood pressure 92 mm[Hg] MENDEZ HEBERT MD [facility] 11-12-2021 01:05-0400 Heart rate 68 /min MENDEZ HEBERT MD [facility] 11-12-2021 01:05-0400 Respiratory rate 18 /min MENDEZ HEBERT MD [facility] 11-12-2021 01:05-0400 Systolic blood pressure 147 mm[Hg] MENDEZ HEBRET MD [facility] Encounters Encounter Date Encounter Type Care Provider Facility Start: 02-12-2025 End: 02-12-[address] Riccardo Waterman MD -[facility] Work Phone: Start: 02-12-2025 End: 02-12-2025 ambulatory Riccardo Waterman Facility[place] [place] Start: 01-23-2025 End: 01-23-2025 ambulatory ABE MENARD [employer]ER Facility:[facility] Start: 01-23-2025 End: 01-23-2025 Patient encounter procedure ABE MENARD [employer]IST[employer] BALANCER [facility] Start: 01-15-2025 End: 01-15-2025 ambulatory ABE MENARD [employer]IST[employer]ER Facility:[facility] Start: 01-15-2025 End: 01-15-2025 Patient encounter procedure ABE MENARD [employer] [facility] Start: 12-13-2024 End: 12-13-2024 ambulatory ABE MENARD [employer]ER Facility:[facility] Start: 12-13-2024 End: 12-13-2024 Patient encounter procedure ABE MENARD [employer]IST[employer]ER [facility] Start: 12-12-2024 End: 12-12-2024 ambulatory ABE MENARD [employer]IST[employer]ER Facility:[facility] Start: 12-12-2024 End: 12-12-2024 Patient encounter procedure ABE MENARD [employer]IST[employer]URE [employer]ER [facility] Start: 12-10-2024 End: 12-10-2024 ambulatory ABE MENARD [employer]IST[employer]ER Facility:[facility] Start: 12-10-2024 End: 12-10-2024 Patient encounter procedure ABE MENARD [employer] [facility] Start: 2023 End: 10-16-2023 ambulatory ABE MENARD Facility:[facility] Start: 2023 End: 10-16-2023 Outreach Lab ABE MENARD [employer] [facility] Start: 04-16-2023 End: 04-16-2023 Emergency department patient visit ABE MENARD Facility:[facility] Start: 08-05-2022 End: 08-09-2022 Outreach Lab ABE MENARD [employer]ER [facility] Start: 11-12-2021 End: 11-12-2021 Emergency department patient visit MENDEZ HEBERT MD [facility] Procedures Date Procedure Procedure Detail Performing Clinician None (qualifier value) MENDEZ HEBERT MD Payers Date Payer Category Payer Self-pay 2024 Unknown [id number] 2024 Private Health Insurance [id number] 2024 Unknown [id number] 2023 Private Health Insurance [id number] 2017 Unknown [id number] 2013 Unknown [id number] 1984 Unknown [id number] 2.16.8 [id number] 1984 Unknown [id number] 2.16.8 [id number] 1984 Unknown [id number] 2.16. [id number] 1984 Unknown [id number] 2.16. [id number] 1984 Unknown [id number] 2.16. [id number] 1984 Unknown [id number] 2.16. [id number] 1984 Unknown [id number] 2.16.8 [id number] Self-pay [id number] Unknown [id number] 2.16.8 [id number] Social History Date Type Detail Facility Start: 11-12-2021 End: 12-11-2024 Tobacco smoking status Smokes tobacco daily (finding) [facility] Sex Assigned At [facility] Tobacco Nicotine Use: Va ping Product in Last 90 Days. Type: Electronic Cigarettes (Vaping). [facility] Start: 01-16-2015 Sex Female (finding) [facility] Start: 12-28-2024 Tobacco smoking stat us TNIS Never smoked tobacco (finding) [facility] Start: 1985 Sex Assigned At Female [facility] Functional Status Date Assessment Result Facility 11-12-2021 Functional Status [facility] Mental Status Date Assessment Result Facility 11-12-2021 [facility] Status [facility] Clinical Notes 11-12-2021 to 12-13-2024 Note Date & Type Note Facility 12-13-2024 Note Exam Date Time Procedure Performing Provider Status 12/13/24 7:17 AM US Abdomen Limited CHRISTEL AGUILERA MD; A [facility] (Verified) [id number] ORIGINAL EXAMINATION: RIGHT UPPER QUADRANT ULTRASOUND 12/13/2024 7:20 am COMPARISON: 12/23/2016 HISTORY: ORDERING SYSTEM PROVIDED HISTORY: Reason for Exam: elevated liver enzymes FINDINGS: LIVER: The liver demonstrates increased echogenicity and coarsened echotexture without evidence of intrahepatic biliary ductal dilatation. The liver measures 18 cm. BILIARY SYSTEM: Gallbladder is unremarkable without evidence of pericholecystic fluid, wall thickening or stones. Negative sonographic Corona's sign. Common bile duct is within normal limits measuring 4 mm. RIGHT KIDNEY: The right kidney is grossly unremarkable without evidence of hydronephrosis. The right kidney measures 11 cm PANCREAS: Pancreas not well visualized. OTHER: No evidence of right upper quadrant ascites. IMPRESSION: Hepatic steatosis and/or hepatocellular disease. Interpreted by: Christel Aguilera Preliminary Report By: Christel Aguilera Electronically signed By Christel Aguilera Dictated Date: 12/13/2024 8:53:59 AM Prelim Date: 12/13/2024 8:56:49 AM Sign Date: 12/13/2024 8:56:49 AM Ordering Provider: ABE MENARD [facility]04-05-2024 Note. MICRO - Microbiology PROCEDURE: Affirm Pathogens DNA Direct Probe [*1] SOURCE: Vaginal Fluid BODY SITE: Endocervix COLLECTED DATE/TIME: 2023 10:53 EDT RECEIVED DATE/TIME: 10/13/2023 19:07 EDT START DATE/TIME: 10/13/2023 19:07 EDT FREE TEXT SOURCE: FINAL REPORTS Final Report [] Verified Date/Time/Personnel: 10/14/2023 12:14 EDT Gardnerella vaginalis DNA Probe Negative Marley species DNA Probe Negative Trichomonas vaginalis DNA Probe Negative Performing Locations *1: This test was performed at: [facility], [address] [place] [address], [id number] , [facility] ([place])08-05-2022 Evaluation + Plan note Future Scheduled Tests Laboratory* Pathology [facility] [place] Request 08/05/22 [facility] 05-05-2022 Hospital Discharge instructions Patient Education 11/12/2021 01:34:32 Diet for Vomiting or Diarrhea (Adult) Diet for Vomiting or Diarrhea (Adult) Your symptoms may return or get worse after eating certain foods listed below. If this happens, stop eating these foods until your symptoms ease and you feel better. Once the vomiting stops, follow the steps below. During the first 12 to 24 hours During the first 12 to 24 hours, follow this diet: Drinks. Plain water, sport drinks like electrolyte solutions, soft drinks without caffeine, mineralwater (plain or flavored), clear fruit juices, and decaffeinated tea and coffee. Soups. Clear broth. Desserts. Plain gelatin, popsicles, and fruit juice bars. As you feel better, you may add 6 to 8 ounces of yogurt per day. If you have diarrhea, don't have foods or drinks that contain sugar, high-fructose corn syrup, or sugar alcohols. During the next 24 hours During the next 24 hours you may add the following to the above: Hot cereal, plain toast, bread, rolls, and crackers Plain noodles, rice, mashed potatoes, and chicken noodle or rice soup Unsweetened canned fruit (but not pineapple) and bananas Don't eat more than 15 grams of fat a day. Do this by staying away from margarine, butter, oils, mayonnaise, sauces, gravies, fried foods, peanut butter, meat, poultry, and fish. Don't eat much fiber. Stay away from raw or cooked vegetables, fresh fruits (except bananas), and bran cereals. Limit how much caffeine and chocolate you have. Do not use any spices or seasonings except salt. During the next 24 hours Slowly go back to your normal diet, as you feel better and your symptoms ease. [id number] [employer]. [address] [place] [address]. All rights reserved. This information is not intended as a substitute for professional medical care. Always follow yourhealthcare professional's instructions. Follow Up Care 11/12/2021 01:04:44 With:ABE MENARD Address: [address] [place] [address] [place] [address]- [phone] When:2-4 days [facility] Evaluation + Plan note No data available for this section [facility] Evaluation + Plan note Future Appointments Appointment Date:11/09/2023 03:30:00 PM Scheduled Provider:ABE MENARD Location:[facility] Appointment Type:PC OV Future Scheduled Tests Laboratory* Complete Blood Count 10/12/23 * Lipid Profile 10/12/23 * Hepatitis C Antibody IgG 10/12/23 * Complete Metabolic Panel 10/12/23 [facility] Evaluation + Plan note Future Appointments Appointment Date:12/11/2024 04:00:00 PM Scheduled Provider:ABE MENARD Location:[facility] Appointment Type:PC Wellness Annual [facility] Evaluation + Plan note Future Appointments Appointment Date:12/13/2024 07:00:00 AM Scheduled Provider: Location:[facility] Appointment Type:US Abdomen Limited Appointment Date:01/15/2025 03:30:00 PM Scheduled Provider: Location:[facility] Appointment Type:MA Mammogram Screening Bilateral w/ Christoph Future Scheduled Tests Radiology* MA Mammo Screening Bilateral w/ Christoph 01/15/25 * US Abdomen Limited 12/13/24 [facility] Evaluation + Plan note Future Appointments Appointment Date:01/15/2025 03:30:00 PM Scheduled Provider: Location:[facility] Appointment Type:MA Mammogram Screening Bilateral w/ Christoph Future Scheduled Tests Radiology* MA Mammo Screening Bilateral w/ Christoph 01/15/25 [facility] Evaluation noteNo assessment information available [facility] Work Phone: Hospital Discharge instructions No data available for this section [facility] Progress note No data available for this section [facility] Reason for referral (narrative)No reason for referral [facility] Work [facility]: Summary Purpose Family History No Family History Records Found Advance Directives No Advanced Directives Records FoundNo Advanced Directives Records FoundNo Advanced Directives Records Found Chief Complaint and Reason for Visit Chief Complaint Admit Date ELEVATED LIVER ENZYMES February 12, 2025 2:33pm Additional Source Comments Care Team (unrecognized sect ion and content) Team Status: Active Member Role/Relationship Status Dates Abe Menard PRIMARY SCHOOL TEACHER LIBRARIAN, PRIMARY SCHOOL TEACHER LIBRARIAN-C Primary Care Provider Active Team Status: Inactive Member Role/Relationship Status Dates Abe Menard PRIMARY SCHOOL TEACHER LIBRARIAN, PRIMARY SCHOOL TEACHER LIBRARIAN-C Primary Care Provider Active Start: February 12, 2025 End: February 12, 2025 Abe Menard PRIMARY SCHOOL TEACHER LIBRARIAN, PRIMARY SCHOOL TEACHER LIBRARIAN-C Referring Provider Active Start: February 12, 2025 End: February 12, 2025 Dr. Riccardo Waterman MD Attending Provider Active Start: February 12, 2025 End: February 12, 2025 Care Team (unrecognized sect ion and content) Care Team Personnel Name: ABE MENARD ELECTRIC NEEDLE SPECIALIST-ARMATURE BALANCER Position: P4 Advanced Practice Nurse Member Role: Primary Care Physician Address: Address: [address] [place] [address]- [place] Care Team Related Persons Name: FAUSTO GAITAN Address: [place] [address] Address: Home [address] [place], [place] [id number] [place] Address: Temporary [address] [place], [place] [id number] Name: LOPEZ GAITAN Address: Home [address] [place], [place] [id number] [place] Address: Temporary [address] [place], [place] [id number] Name: PAULO GAITAN Carlyle Address: Home [address] [place] [address] Name: CHRIS GALLARDO Name: CHRIS GALLARDO INFORMATION SOURCE (unrecogn ized section and content) DATE CREATED AUTHOR 01/07/2024 [facility] ([place]) DATE CREATED AUTHOR AUTHOR'S ORGANIZ ATION 02/03/2025 [facility] DATE CREATED AUTHOR AUTHOR'S ORGANIZ ATION 02/10/2025 [facility] Goals (unrecognized section and content) Goals may be documented in a n alternate section FOR RECORDS PERTAINING TO PATIENTS WHO ARE OR HAVE BEEN ENROLLED IN A CHEMICAL DEPENDENCY/SUBSTANCEABUSE PROGRAM, SOME INFORMATION MAY BE OMITTED. This clinical summary was aggregated from multiple sources. Caution should be exercised in using it in the provision of clinical care. This summary normalizes information from multiple sources, and as a consequence, information in this document may materially change the coding, format and clinical context of patient data. In addition, data may be omitted in some cases. CLINICAL DECISIONS SHOULD BE BASED ON THE PRIMARY CLINICAL RECORDS. [facility] [employer] [facility]. provides no warranty or guarantee of the accuracy or completeness of information in this document.
== END | disposition home or self-care (01) ==
LOC: US 08:11
PROVIDERS: PCP Nurse Practitioner Primary Care; Referring Provider Internal Medicine; Visit Provider Internal Medicine
DX: K76.0 Fatty (change of) liver, not elsewhere classified (principal)
CPT/HCPCS: 76981